=== PATIENT | female | born 1970 | race Caucasian/White ===

== ENCOUNTER → 2024-06-23 | Outpatient (REF) | payer OTHER | LOC: MAMMO 14:51 | PROVIDERS: ATTEND Obstetrics & Gynecology | DX: Z12.31 Encounter for screening mammogram for malignant neoplasm of breast (principal) | CPT/HCPCS: 77067 ==

== ENCOUNTER → 2024-11-26 | Outpatient (REF) | payer OTHER | LOC: US 15:31 | PROVIDERS: ATTEND Nurse Practitioner Family | DX: E03.9 Hypothyroidism, unspecified (principal) | CPT/HCPCS: 76536 ==